=== PATIENT | female | born 2000 | race Caucasian/White ===

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

== ENCOUNTER 2019-01-21 08:52 | Emergency (ER) | payer SELFPAY ==
[~2019-01-21] VITALS: Ht 162.6 cm; Wt 86.7 kg
[~2019-01-21 08:52] MED LIST changes: +HYDR-4011 PO; +NAPR-985 PO; +ONDA4TAB14 PO
[2019-01-21 08:53] VITALS: BP 145/100; PULSE 68; RESP 18; Ht 162.6 cm; Wt 86.7 kg
[2019-01-21] MEDS ORDERED: SOD CHLORIDE 0.9% 1,000 ML IV STA (09:10)
[2019-01-21] MEDS ORDERED: morphine 2 MG INJ IV STA ×2 (09:10→10:01)
[2019-01-21] MEDS ORDERED: ONDANSETRON 4 MG INJ IV STA ×2 (09:10→11:03)
[2019-01-21] MEDS ORDERED: LIDOCAINE/MYLANTA 40 ML BTL PO STA (10:01)
--- NOTE | 2019-01-21 11:05 | ERD ---
ER Documentation Chief Complaint Chief Complaint abdominal lua w/vomitting since 2100 last night HPI 18-year-old female presents to ED with stomach pain since 9 PM last night. She reports nausea and vomiting but denies diarrhea. She denies any fevers or chills. She reports that she was here 1 month ago for very similar symptoms in which she was diagnosed with ovarian cyst. However she did not fill the prescriptions that she was given. She has not taken any medication for the symptoms. Patient states that she has a control implant for 3 years and she has no concerns for . She states that her pain is located all across her lower abdomen. She denies urinary frequency, burning sensation when urinating. G0, ROS All systems reviewed and are negative except as per history of present illness. Medications Home Meds Active Scripts Naproxen* (Naprosyn*) 500 Mg Tablet, 500 MG PO BID PRN for PAIN AND/OR INFLAMMATION, #30 TAB Prov:KHAI BUTT PA-C 01/21/19 Ondansetron (Ondansetron Odt) 4 Mg Tab.rapdis, 4 MG PO Q6H PRN for NAUSEA AND/OR VOMITING, #30 TAB Prov:KHAI BUTT PA-C 01/21/19 Hydrocodone/Acetaminophen (Kent 5-325 Tablet) 1 Each Tablet, 1 TAB PO Q6H PRN for PAIN, #7 TAB Prov:ALESSANDRO CARCAMO PA-C 12/23/18 Ondansetron (Ondansetron Odt) 4 Mg Tab.rapdis, 4 MG PO Q6H PRN for NAUSEA AND/OR VOMITING, #10 TAB Prov:ALESSANDRO CARCAMO PA-C 12/23/18 Naproxen* (Naprosyn*) 500 Mg Tablet, 500 MG PO BID PRN for PAIN AND/OR INFLAMMATION, #30 TAB Prov:ALESSANDRO CARCAMO PA-C 12/23/18 Amoxicillin/Potassium Clav (Amox-Clav 875-125 mg Tablet) 875-125 mg Tab, 1 TAB PO BID for 10 Days, #20 TAB Prov:JAM CAMARILLO PA-C 02/09/18 Mometasone Furoate* (Nasonex*) 50 Mcg/[place] - 17 Gm [place].pump, 1 SPRAY NASAL BID, #1 BOTTLE IN EACH NOSTRIL Prov:KIRK PHILLIPS PA-C 06/18/17 Cetirizine Hcl* (Zyrtec*) 10 Mg Capsule, 10 MG PO DAILY, #10 TAB.CHEW Prov:KIRK PHILLIPS PA-C 06/18/17 Ibuprofen* (Motrin*) 600 Mg Tab, 600 MG PO Q6, #30 TAB Prov:KIRK PHILLIPS PA-C 06/18/17 Prednisone* (Prednisone*) 20 Mg Tab, 40 MG PO DAILY for 4 Days, TAB Prov:KIRK PHILLIPS PA-C 06/18/17 Albuterol Sulfate* (Proair HFA*) 8.5 Gm Hfa.aer.ad, 2 PUFF INH Q4, #1 INHALER Prov:ROSALIE BAE PA-C 06/14/17 Fluticasone Propionate (Flonase Allergy Relief) 9.9 Ml [place].susp, 1 SPRAY NASAL BID, #1 BOTTLE TO EACH NOSTRIL Prov:ROSALIE BAE PA-C 06/14/17 Ibuprofen* (Motrin*) 600 Mg Tab, 600 MG PO Q6, #20 TAB Prov:ROSALIE BAE PA-C 06/14/17 Allergies Allergies: Coded Allergies: No Known Allergy (Verified , 01/21/19) PMhx/Soc Medical and Surgical Hx: pt denies Surgical Hx History of Surgery: No Anesthesia Reaction: No Hx Neurological Disorder: No Hx Respiratory Disorders: Yes (asthma) Hx Cardiac Disorders: No Hx Psychiatric Problems: No Hx Miscellaneous Medical Probl: No Hx Alcohol Use: No Hx Substance Use: Yes (Marijuana) Hx Tobacco Use: No Smoking Status: Never smoker FmHx Family History: No diabetes Physical Exam Vitals Vital Signs Date Temp Pulse Resp B/P (MAP) Pulse Ox O2 O2 Flow FiO2 Time Delivery Rate 01/21/19 98.0 68 18 145/100 98 08:53 (115) Physical Exam Const: No acute distress Head: Atraumatic Neck: Full range of motion. Resp: Clear to auscultation bilaterally Cardio: Regular rate and rhythm, Abd: Soft, tenderness to the left and right lower quadrants of the abdomen, non distended. Normal bowel sounds. No rebounding or guarding. Skin: No petechiae or rashes Back: No midline or flank tenderness Neur: Awake and alert Psych: Normal Mood and Affect Result Diagram: 01/21/1992001/21/19 0921 Results 24 hrs Laboratory Tests Test 01/21/19 09:21 01/21/19 09:28 White Blood Count 16.1 10^3/ul Red Blood Count 4.18 10^6/ul Hemoglobin 12.5 g/dl Hematocrit 37.9 % Mean Corpuscular Volume 90.7 fl Mean Corpuscular Hemoglobin 29.9 pg Mean Corpuscular Hemoglobin Concent 33.0 g/dl Red Cell Distribution Width 13.5 % Platelet Count 288 10^3/UL Mean Platelet Volume 11.3 fl Immature Granulocytes % 0.400 % Neutrophils % 86.9 % Lymphocytes % 9.9 % Monocytes % 2.7 % Eosinophils % 0.0 % Basophils % 0.1 % Nucleated Red Blood Cells % 0.0 /100WBC Immature Granulocytes # 0.070 10^3/ul Neutrophils # 14.0 10^3/ul Lymphocytes # 1.6 10^3/ul Monocytes # 0.4 10^3/ul Eosinophils # 0.0 10^3/ul Basophils # 0.0 10^3/ul Nucleated Red Blood Cells # 0.0 10^3/ul Urine Color YELLOW Urine Clarity SLIGHTLY CLOUDY Urine pH 8.0 Urine Specific [place] 1.024 Urine Ketones NEGATIVE mg/dL Urine Nitrite NEGATIVE mg/dL Urine Bilirubin NEGATIVE mg/dL Urine Urobilinogen NEGATIVE mg/dL Urine Leukocyte Esterase NEGATIVE Barrett/ul Urine Microscopic RBC 2 /HPF Urine Microscopic WBC 1 /HPF Urine Squamous Epithelial Cells FEW /HPF Urine Mucus FEW /HPF Urine Yeast (Budding) FEW /HPF Urine Hemoglobin 1+ mg/dL Urine Glucose NEGATIVE mg/dL Urine Total Protein NEGATIVE mg/dl Sodium Level 142 mmol/L Potassium Level 3.8 mmol/L Chloride Level 104 mmol/L Carbon Dioxide Level 24 mmol/L Anion Gap 14 Blood Urea Nitrogen 9 mg/dl Creatinine 0.45 mg/dl Est Glomerular Filtrat Rate mL/min > 60 mL/min Glucose Level 137 mg/dl Calcium Level 10.0 mg/dl Total Bilirubin 0.5 mg/dl Direct Bilirubin 0.00 mg/dl Indirect Bilirubin 0.5 mg/dl Aspartate Amino Transf (AST/SGOT) 18 IU/L Alanine Aminotransferase (ALT/SGPT) 18 IU/L Alkaline Phosphatase 74 IU/L Total Protein 7.7 g/dl Albumin 4.8 g/dl Globulin 2.90 g/dl Albumin/Globulin Ratio 1.65 Lipase 71 U/L Beta HCG, Quantitative < 2.4 mIU/ml POC Beta HCG, Qualitative NEGATIVE Current Medications Medications Dose Sig/Eh Start Time Status Last (Trade) Ordered Route PRN Stop Time Admin Dose Reason Admin Sodium 1,000 ml @ Q1H STAT 01/21/19 DC 01/21/19 Chloride 1,000 mls/hr IV 09:10 01/21/19 09:27 10:09 Morphine 2 mg ONCE STAT 01/21/19 DC 01/21/19 Sulfate IV 09:10 01/21/19 09:27 (morphine) 09:11 Ondansetron 4 mg ONCE STAT 01/21/19 DC 01/21/19 HCl (Zofran IV 09:10 01/21/19 09:27 Inj) 09:11 Morphine 2 mg ONCE STAT 01/21/19 DC 01/21/19 Sulfate IV 10:01 01/21/19 11:09 (morphine) 10:03 40 ml ONCE STAT 01/21/19 DC 01/21/19 Miscellaneous PO 10:01 01/21/19 11:09 Medication 10:03 (Gi Cocktail (2)) Ondansetron 4 mg ONCE STAT 01/21/19 DC 01/21/19 HCl (Zofran IV 11:03 01/21/19 11:09 Inj) 11:04 Procedures/MDM ED COURSE: The patient was stable throughout ED course. I kept the patient informed of laboratory and diagnostic imaging results throughout the ED course. DIAGNOSTIC IMAGING: Read by radiologist. PROCEDURE: US Pelvis. CLINICAL INDICATION: pelvic pain TECHNIQUE: Multiple sonographic images of the pelvis were obtained utilizing transabdominal technique. The images were reviewed on a PACS workstation. COMPARISON: None. FINDINGS: The uterus is normal in size with a normal appearance of the myometrium. The uterus measures 8.2 x 3.3 x 4.3 cm. The endometrial stripe is homogeneous in appearance and has the thickness of 2 mm. Normal Doppler flow is identified in both ovaries. The right ovary measures 3.9 x 2.0 x 2.8 cm. The left ovary measures 6.3 x 4.3 x 3.5 cm. There is a 3.9 cm simple cyst in the left ovary. No free fluid is present within the pelvis. RPTAT: AA IMPRESSION: Enlarged left ovary with a 3.9 cm simple cyst. .Puneet Malone MD, Date Time Electronically viewed and signed by .Puneet Malone MD, MD on 01/21/2019 10:50 MEDICATIONS GIVEN: [None.] Patient tolerated medication well with no adverse reactions. Patient reported improvement in pain. MEDICAL DECISION MAKING: Patient is a 18-year-old female complaining of lower abdominal pain since last night. She reports nausea and vomiting. I have low suspicion for ovarian torsion, , ectopic , appendicitis, diverticulitis, cholecystitis. Patient was here 1 month ago for similar incidents in which she was diagnosed with ovarian cyst however she did not go fill her medications that she was prescribed. Patient test was negative. Ultrasound was done showing left quadrant ovarian cyst which has slightly shrunk in size. At this time I think patient is suffering from ovarian cyst. She was given IV fluids and medication in the ED which improved her symptoms. 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 Patient was given strict return to ED precautions if symptoms persist or worsen. All questions were answered at discharge. Vital signs were reviewed. Patient is afebrile. Patient was not hypoxic. Patient was hemodynamically stable. Patient was told to follow up with primary care for further care and management. PRESCRIPTION: Zofran, naproxen DISCHARGE: At this time, patient is stable for discharge and outpatient management. I have instructed the patient to follow-up with their primary care physician in 1-2 days. I have discussed with the patient the possibility of needing to see a specialist for further workup and imaging studies if symptoms persist. I have instructed the patient to promptly return to the ER for any new or worsening symptoms including increased pain, fever, nausea, vomiting, weakness or LOC. The patient expressed understanding of and agreement with this plan. All questions were answered. Home care instructions were provided. Disclaimer: Inadvertent spelling and grammatical errors are likely due to EHR/dictation software use and do not reflect on the overall quality of patient care. Also, please note that the electronic time recorded on this note does not necessarily reflect the actual time of the patient encounter. Departure Diagnosis: Primary Impression: Ovarian cyst Laterality: left Qualified Codes: N83.202 - Unspecified ovarian cyst, left side Condition: Fair Patient Instructions: Ovarian Cyst Referrals: [facility], [facility]–1983 YOU HAVE RECEIVED A MEDICAL SCREENING EXAM AND THE RESULTS INDICATE THAT YOU DO NOT HAVE A CONDITION THAT REQUIRES URGENT TREATMENT IN THE EMERGENCY DEPARTMENT. FURTHER EVALUATION AND TREATMENT OF YOUR CONDITION CAN WAIT UNTIL YOU ARE SEEN IN YOUR DOCTORS OFFICE WITHIN THE NEXT 1-2 DAYS. IT IS YOUR RESPONSIBILITY TO MAKE AN APPOINTMENT FOR FOLOW-UP CARE. IF YOU HAVE A PRIMARY DOCTOR --you should call your primary doctor and schedule an appointment IF YOU DO NOT HAVE A PRIMARY DOCTOR YOU CAN CALL OUR PHYSICIAN REFERRAL HOTLINE AT IF YOU CAN NOT AFFORD TO SEE A PHYSICIAN YOU CAN CHOSE FROM THE FOLLOWING [facility] [address] [facility] [address] [facility] [address] [facility] [address] [facility] [address] [facility] [address] [facility]. [facility]. [address] [facility] YOU HAVE RECEIVED A MEDICAL SCREENING EXAM AND THE RESULTS INDICATE THAT YOU DO NOT HAVE A CONDITION THAT REQUIRES URGENT TREATMENT IN THE EMERGENCY DEPARTMENT. FURTHER EVALUATION AND TREATMENT OF YOUR CONDITION CAN WAIT UNTIL YOU ARE SEEN IN YOUR DOCTORS OFFICE WITHIN THE NEXT 1-2 DAYS. IT IS YOUR RESPONSIBILITY TO MAKE AN APPOINTMENT FOR FOLOW-UP CARE. IF YOU HAVE A PRIMARY DOCTOR --you should call your primary doctor and schedule and appointment IF YOU DO NOT HAVE A PRIMARY DOCTOR YOU CAN CALL OUR PHYSICIAN REFERRAL HOTLINE AT . IF YOU CAN NOT AFFORD TO SEE A PHYSICIAN YOU CAN CHOSE FROM THE FOLLOWING COUNTS INCLUDE 234 BEDS AT THE [facility] INSTITUTIONS: [facility] [address] [place] [address] [facility] [address] [place] [address] [facility] + [facility] [address] [place] [address] [employer] [address] [facility] [address] [place] [address] OFFICE FAX , [place] [address] [place] [address] [address] [facility] [address] [place] [address] [address], [facility] [address] [facility] [address] [address] [facility] [address] [place] [address] [facility] [address] [place] [address] [address] [facility] [address] - [address] TATUM CAM [address] [facility] [address] [address] [place], [facility] [address] [facility], [facility] [place] [address] [address] [place], [facility] [address] [place], [place] [id number] Additional Instructions: Call your primary care doctor TOMORROW for an appointment during the next 1-2 days.See the doctor sooner or return here if your condition worsens before your appointment time. KHAI BUTT PA-C Jan 21, 2019 11:05
== END 2019-01-21 11:47 | disposition home or self-care (01) ==
LOC: FTE 08:52
DX: N83.202 Unspecified ovarian cyst, left side (principal); J45.909 Unspecified asthma, uncomplicated; R10.2 Pelvic and perineal pain
CPT/HCPCS: 36415; 76856; 80053; 81001; 81025; 83690; 84702; 85025; 96361; 96374; 96375; 96376; 99285; J2270; J2405; J7030